=== PATIENT | male | born 2000 | race Caucasian/White ===

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

== ENCOUNTER 2025-05-24 14:13 | Emergency (ER) | payer OTHER, SELFPAY ==
[2025-05-24] MEDS ORDERED: Ondansetron PF 4 MG/2 ML Vial ONE (14:50)
[2025-05-24 14:53] LABS: #Basophils 0.1 thou/uL (0.0-0.2); #Eosinophils 0.0 thou/uL (0.0-0.7); #Lymphocytes 2.2 thou/uL (1.20-3.40); #Monocytes 0.6 thou/uL (0.11-0.59); #Neutrophils 4.1 thou/uL (1.40-6.50); %Basophils 1.1 % (0.0-1.0); %Eosinophils 0.6 % (0.0-10.0); %Lymphocytes 31.9 % (21.0-51.0); %Monocytes 7.8 % (0.0-10.0); %Neutrophils 58.5 % (42.0-75.0); Hematocrit 48.7 % (42.0-52.0); Hemoglobin 16.2 g/dL (14.0-18.0); Mean Corpuscular Hemoglobin 28.4 pg (27.0-31.0); Mean Corpuscular Volume 85.4 fl (78.0-98.0); Platelet Count 304 10x3/uL (130-400); Red Blood Cell (RBC) Count 5.70 mill/uL (4.70-6.10); White Blood Cell (WBC) Count 7.0 10x3/uL (4.8-10.8)
[2025-05-24 15:00] LABS: INR-International Normal Ratio 1.2; Prothrombin Time 15.4 sec (12.0-14.7)
[2025-05-24 15:01] LABS: PTT 34.5 sec (22.9-36.1)
[2025-05-24 15:11] LABS: ALT (SGPT) 31 U/L (Less than 45); AST (SGOT) 27 U/L (11-34); Albumin 4.6 g/dL (3.1-4.5); Alkaline Phosphatase 81 U/L (40-110); Anion Gap 17 mmol/L (10-20); BUN (Urea Nitrogen) 15 mg/dL (8.9-20.6); Bilirubin, Total 1.0 mg/dL (0.3-1.2); Calc. Creatinine Clearance 0 mL/min (70-130); Calcium 9.5 mg/dL (7.8-10.44); Carbon Dioxide 21 mmol/L (22-29); Chloride 104 mmol/L (98-107); Globulin 3.0 g/dL (2.4-3.5); Glucose 100 mg/dL (70-105); Lipase 18 U/L (8-78); Potassium 4.0 mmol/L (3.5-5.1); Sodium 138 mmol/L (136-145)
[2025-05-24] MEDS ORDERED: Ibuprofen 600 MG TAB ONE (16:04)
[2025-05-24] MEDS ORDERED: Acetaminophen 500 MG TAB ONE (16:05)
== END 2025-05-24 16:13 | disposition home or self-care (01) ==
LOC: MADERS 14:13
DX: R53.83 Other fatigue (principal); R55 Syncope and collapse; Z20.828 Contact with and (suspected) exposure to other viral communicable diseases
CPT/HCPCS: 80053; 83690; 85025; 85610; 85730; 87428; 93005; 96361; 96374; J7030